=== PATIENT | male | born 1975 | race Caucasian/White ===

== ENCOUNTER 2024-05-17 08:29 | Outpatient (CLI) | payer BC, SELFPAY | END 2024-05-17 08:30 | disposition home or self-care (01) | PROVIDERS: PCP Emergency Medicine; Visit Provider Physician Assistant Medical | DX: Z00.00 Encounter for general adult medical examination without abnormal findings (principal); I10 Essential (primary) hypertension; Z13.0 Encounter for screening for diseases of the blood and blood-forming organs and certain disorders involving the immune mechanism; Z13.1 Encounter for screening for diabetes mellitus; Z12.5 Encounter for screening for malignant neoplasm of prostate; Z11.59 Encounter for screening for other viral diseases | CPT/HCPCS: 80053; 80061; 84443; 86703; 86803; G0103 ==

== ENCOUNTER 2024-06-30 08:05 | Outpatient (CLI) | payer BC, SELFPAY ==
--- NOTE | 2024-06-30 09:42 | W.ANESCHARGE ---
Anesthesia Charges Start Date/Time Anesthesia Start Date: 06/30/24 Anesthesia Start Time: 09:20 Stop Date/Time Anesthesia Stop Date: 06/30/24 Anesthesia Stop Time: 09:51
--- NOTE | 2024-06-30 10:53 | W.ANESCHARGE ---
Anesthesia Charges Start Date/Time Anesthesia Start Date: 06/30/24 Anesthesia Start Time: 09:20 Stop Date/Time Anesthesia Stop Date: 06/30/24 Anesthesia Stop Time: 09:51
== END 2024-06-30 08:06 | disposition home or self-care (01) ==
PROVIDERS: PCP Physician Assistant Medical; Visit Provider Surgery
DX: Z12.11 Encounter for screening for malignant neoplasm of colon (principal); D12.5 Benign neoplasm of sigmoid colon; K57.30 Diverticulosis of large intestine without perforation or abscess without bleeding
CPT/HCPCS: 00811; 45385; 88305; J2704

== ENCOUNTER 2025-04-19 08:06 | Outpatient (CLI) | payer BC, SELFPAY | END 2025-04-19 08:07 | disposition home or self-care (01) | PROVIDERS: PCP Physician Assistant Medical; Visit Provider Physician Assistant Medical | DX: E78.5 Hyperlipidemia, unspecified (principal); I10 Essential (primary) hypertension; Z12.5 Encounter for screening for malignant neoplasm of prostate; Z13.29 Encounter for screening for other suspected endocrine disorder | CPT/HCPCS: 80053; 80061; 84443; 87086; G0103 ==